=== PATIENT | female | born 1995 | race African-American/Black ===

== ENCOUNTER 2022-09-25 12:26 | Emergency (ER) | payer MEDICAID ==
[~2022-09-25] VITALS: Ht 175.3 cm; Wt 62.7 kg
[2022-09-25] MEDS ORDERED: DOCO200C5 PO (12:49)
[2022-09-25] MEDS ORDERED: SODIUM CHLORIDE 0.9% 1,000 ML IV ONE (14:00)
[2022-09-25] MEDS ORDERED: FAMOTIDINE 10 MG/ML 2 ML VIAL IVP ONE (14:00)
[2022-09-25] MEDS ORDERED: ONDANSETRON HCL 4 MG/2 ML VIAL IVP ONE ×2 (14:00→15:45)
[2022-09-25 14:26] LABS: BASOPHILS % (AUTO) 0.3 % (0.0-2.0); EOSINOPHILS % (AUTO) 0.1 % (1.0-6.0); HEMATOCRIT 37.5 % (36-46); HEMOGLOBIN 12.5 g/dL (12.0-16.0); LYMPHOCYTES # (AUTO) 1.1 K/uL (1.0-4.8); LYMPHOCYTES % (AUTO) 13.2 % (22.0-44.0); MEAN CORPUSCULAR HEMOGLOBIN 30.8 pg (26.0-34.0); MEAN CORPUSCULAR HGB CONC 33.4 G/dL (31.0-37.0); MEAN CORPUSCULAR VOLUME 92 fL (80-100); MONOCYTES # (AUTO) 0.6 K/uL (0.1-1.0); MONOCYTES % (AUTO) 6.6 % (2.0-9.0); NEUTROPHILS # (AUTO) 6.8 K/uL (1.8-7.7); NEUTROPHILS % (AUTO) 79.8 % (40.0-70.0); PLATELET COUNT (AUTO) 280 K/uL (150-450); RED BLOOD CELL COUNT(AUTO) 4.07 MIL/uL (4.00-5.20); RED CELL DISTRIBUTION WIDTH 14.6 % (11.5-14.5)
[2022-09-25 14:33] LABS: ANION GAP 15 mmol/L (8-16); CALCIUM, TOTAL 9.4 mg/dL (8.8-10.5); CARBON DIOXIDE 26 mmol/L (22-29); CHLORIDE 103 mmol/L (98-107); CREATININE 0.85 mg/dL (0.60-1.30); GLUCOSE,RANDOM 113 mg/dL (70-110); SODIUM SERUM 144 mmol/L (136-145); UREA NITROGEN, BLOOD 15 mg/dL (7-18)
[2022-09-25 14:34] LABS: GLOMERULAR FILTR. RATE CALC > 60 mL/min (>60)
[2022-09-25 14:44] LABS: ALANINE AMINOTRANSFERASE 28 U/L (12-78); ALBUMIN 4.3 g/dL (3.4-5.0); ALKALINE PHOSPHATASE 56 U/L (46-116); ASPARTATE AMINOTRANSFERASE 24 U/L (15-37); BILIRUBIN,TOTAL 0.6 mg/dL (0.1-1.0); HCG,QUANTITATIVE < 1 mIU/mL (0-6); LIPASE 57 U/L (73-393); TOTAL PROTEIN, SERUM 7.8 g/dL (6.4-8.2)
[2022-09-25] MEDS ORDERED: POTASSIUM CHLORIDE 20 MEQ ER TABLET PO ONE (15:15)
[2022-09-25] MEDS ORDERED: PEG 3350/NA SULF,BICARB,CL/KCL 4000 ML SOLUTION PO ONE (15:30)
[2022-09-25] MEDS ORDERED: KETOROLAC TROMETHAMINE 30 MG/ML VIAL IVP ONE (15:45)
[2022-09-25] MEDS ORDERED: DiphenhydrAMINE HCL 50 MG/ML VIAL IVP ONE (17:30)
[2022-09-25] MEDS ORDERED: METOCLOPRAMIDE HCL 5 MG/ML 2 ML VIAL IVP ONE (17:30)
[2022-09-25 19:00] VITALS: BP 115/68
[2022-09-26] MEDS ORDERED: HYDR30CR3 TP (04:27)
[2022-09-26] MEDS ORDERED: DICY20TA95 PO (04:27)
== END 2022-09-25 19:19 | disposition home or self-care (01) ==
LOC: EMS 13:11
DX: R11.10 Vomiting, unspecified (principal); K59.00 Constipation, unspecified
CPT/HCPCS: 99284; 96374; 96375; 96361; 80053; 83690; 84702; 85025; 36415; 96376; J1200; J3490; J1885; J2765; J2405; J7030

== ENCOUNTER 2022-09-26 02:34 | Emergency (ER) | payer MEDICAID ==
[~2022-09-26] VITALS: Ht 175.3 cm; Wt 63.6 kg
[~2022-09-26 02:34] MED LIST: DOCO200C5 PO
[2022-09-26] MEDS ORDERED: SODIUM CHLORIDE 0.9% 1,000 ML IV ONE (04:00)
[2022-09-26] MEDS ORDERED: ONDANSETRON HCL 4 MG/2 ML VIAL IVP ONE (04:00)
[2022-09-26] MEDS ORDERED: KETOROLAC TROMETHAMINE 30 MG/ML VIAL IVP ONE (04:00)
[2022-09-26] MEDS ORDERED: HYDR30CR3 TP (04:27)
[2022-09-26] MEDS ORDERED: DICY20TA95 PO (04:27)
[2022-09-26] MEDS ORDERED: METOCLOPRAMIDE HCL 5 MG/ML 2 ML VIAL IVP ONE (06:15)
[2022-09-26 08:55] VITALS: BP 125/76
== END 2022-09-26 09:16 | disposition home or self-care (01) ==
LOC: EMS 02:35
DX: K64.4 Residual hemorrhoidal skin tags (principal); K58.1 Irritable bowel syndrome with constipation; F45.8 Other somatoform disorders
CPT/HCPCS: 99284; 74176; 96374; 96375; 96361; J1885; J2765; J2405; J7030